=== PATIENT | male | born 1970 | race Asian ===

== ENCOUNTER → 2021-12-30 | Emergency (ER) | payer BC, OTHER ==
[~2021-12-30] VITALS: Ht 172.7 cm; Wt 72.6 kg
[2021-12-30 23:00] VITALS: BP 142/68
== END | disposition home or self-care (01) ==
LOC: EDBD 20:25 → ER 20:25
DX: M54.2 Cervicalgia (principal); Z53.21 Procedure and treatment not carried out due to patient leaving prior to being seen by health care provider; V43.52XA Car driver injured in collision with other type car in traffic accident, initial encounter; Y93.89 Activity, other specified; Y92.410 Unspecified street and highway as the place of occurrence of the external cause; Y99.8 Other external cause status
CPT/HCPCS: 72040